=== PATIENT | male | born 1960 | race Caucasian/White ===

== ENCOUNTER 2017-04-08 10:22 | Emergency (ER) | payer OTHER ==
[~2017-04-08] VITALS: Ht 182.8 cm; Wt 86.2 kg
[~2017-04-08 10:22] MED LIST: ALPRAZOLAM2 MG PO; APAP/OXYCODONE1 TA2 PO; ATIVAN1 MG PO; BACTRIM DS 8001 TA1 PO; CYMBALTA30 MG PO; DULOXETINE HCL60 MG PO; EFFEXOR XR75 M1 PO; HYDROCODONE BIT1 T11 PO; KEFLEX500 M1 PO; LEVAQUIN500 M2 PO; METFORMIN500 MG PO; MIRTAZAPINE15 M2 PO; Motrin,Rufen800 MG PO; OLANZAPINE7.5 M1 PO; OXYCODONE AND A1 T12 PO; PERCOCET 325 MG1 TA4 PO; PREDNISONE10 MG PO; PROZAC40 M1 PO; REMERON15 M2 PO; RESTORIL; REXULTI2 MG PO; TIZANIDINE HCL4 MG PO; TRIXAICIN HP0.075% T; VALIUM10 MG PO; VENTOLIN H0.09 MG/AC INH; XANAX1 MG PO; ZOFRAN ODT4 MG SL; ZYPREXA5 M1 PO
[2017-04-08] MEDS ORDERED: PENICILLIN-VK500 MG PO (10:55)
[2017-04-08] MEDS ORDERED: Peridex 473 ML473 ML PO (10:57)
[2017-04-08] MEDS ORDERED: Motrin,Rufen800 MG PO (10:57)
[2017-04-08] MEDS ORDERED: LIDOCAINE VISC100 ML MM (10:57)
== END 2017-04-08 11:24 | disposition home or self-care (01) ==
LOC: ED 10:22
DX: K08.89 Other specified disorders of teeth and supporting structures (principal); F17.200 Nicotine dependence, unspecified, uncomplicated

== ENCOUNTER 2017-07-27 15:26 | Emergency (ER) | payer OTHER ==
[~2017-07-27] VITALS: Ht 182.8 cm; Wt 88.5 kg
[~2017-07-27 15:26] MED LIST changes: +LIDOCAINE VISC100 ML MM; +PENICILLIN-VK500 MG PO; +Peridex 473 ML473 ML PO
[2017-07-27] MEDS ORDERED: SUBOXONE 8 MG-1 EACH SL (15:34)
[2017-07-27] MEDS ORDERED: ZOFRAN4 MG PO (15:45)
[2017-07-27] MEDS ORDERED: VISTARIL25 MG PO (15:45)
== END 2017-07-27 15:51 | disposition home or self-care (01) ==
LOC: ED 15:26
DX: F11.23 Opioid dependence with withdrawal (principal); R03.0 Elevated blood-pressure reading, without diagnosis of hypertension; F17.200 Nicotine dependence, unspecified, uncomplicated; G89.29 Other chronic pain; Z98.890 Other specified postprocedural states

== ENCOUNTER 2018-02-05 19:43 | Emergency (ER) | payer OTHER ==
[~2018-02-05 19:43] MED LIST changes: +SUBOXONE 8 MG-1 EACH SL; +VISTARIL25 MG PO; +ZOFRAN4 MG PO
== END 2018-02-05 21:10 | disposition home or self-care (01) ==
LOC: ED 19:43
DX: M25.561 Pain in right knee (principal); F17.200 Nicotine dependence, unspecified, uncomplicated

== ENCOUNTER 2022-05-12 16:57 | Inpatient (IN) | payer OTHER ==
[~2022-05-12] VITALS: Ht 182.8 cm; Wt 91.3 kg
[~2022-05-12 16:57] MED LIST changes: +DIAZEPAM10 M1 PO; +LEVOFLOXACIN750 M2 PO; +PROAIR HFA8.5 GM INH; +Percocet 325 MG1 TAB PO; +VIBRAMYCIN100 MG PO
[2022-05-12 16:59] VITALS: BP 120/78
[2022-05-12 17:43] LABS: BASO # 0.1 10*3/uL (0.0-0.1); BASO % 0.8 % (0.0-1.0); EOS # 0.5 10*3/uL (0.0-0.4); EOS % 5.1 % (1.0-4.0); HEMATOCRIT 41.3 % (42.0-52.0); LYMPH # 3.5 10*3/uL (1.3-4.4); LYMPH % 34.7 % (27.0-41.0); MEAN CELL VOLUME 87.1 fl (80.0-94.0); MEAN CORPUSCULAR HGB 29.7 pg (27.0-31.0); MEAN CORPUSCULAR HGB CONC 34.1 g/dl (33.0-37.0); MEAN PLATELET VOLUME 9.7 fl (9.6-12.3); MONO # 0.5 10*3/uL (0.1-1.0); MONO % 4.5 % (3.0-9.0); NEUT # 5.4 10*3/uL (2.3-7.9); NEUT % 54.5 % (47.0-73.0); PLATELET COUNT AUTOMATED 225 10*3/uL (130-400); RED BLOOD COUNT 4.74 10*6/uL (4.50-5.90); RED CELL DISTRI WIDTH 13.4 % (0-14.5)
[2022-05-12 17:54] LABS: ACT PARTIAL THROMBO TIME 24.8 SECONDS (20.0-32.1)
[2022-05-12 17:59] LABS: ALKALINE PHOSPHATASE 94 U/L (45-117); BUN 12 mg/dl (7-24); CHLORIDE 108 mmol/L (98-107); CREATININE 1.07 mg/dL (0.70-1.30); POTASSIUM 3.9 mmol/L (3.5-5.1); SGOT/AST 13 IU/L (3-35); SGPT/ALT 19 U/L (12-78); SODIUM 138 mmol/L (136-145); TOTAL PROTEIN 6.3 gm/dL (6.4-8.2)
[2022-05-12 18:13] LABS: BILIRUBIN Negative (Negative); BLOOD Negative (Negative); CLARITY Clear (Clear); COLOR Yellow (Yellow); GLUCOSE Negative (Negative); KETONE Negative (Negative); LEUKO ESTERASE Negative (Negative); NITRITE Negative (Negative); PH 5.5 (4.5-8.0); SPECIFIC GRAVITY <= 1.005 (1.001-1.030); UROBILINOGEN 0.2 E.U./dl (0.0-1.0)
[2022-05-12 18:21] LABS: URINE AMPHETAMINES < 1000 (1000ng/ml); URINE BARBITURATES < 200 (200ng/ml); URINE BENZODIAZEPINES > 200 (200ng/ml); URINE CANNABINOIDS (THC) < 50 (50ng/ml); URINE COCAINE < 300 (300ng/ml); URINE METHADONE < 300 (300ng/ml); URINE OPIATES < 300 (300ng/ml)
[2022-05-12 18:22] LABS: URINE PHENCYCLIDINE < 25 (25ng/ml)
[2022-05-12 18:30] VITALS: BP 116/69
[2022-05-12 18:32] LABS: EPITHELIAL CELLS 0-2; WBC 0-2 wbc/hpf (0-5)
[2022-05-12 21:01] VITALS: BP 118/72
[2022-05-12 21:45] VITALS: BP 128/72
[2022-05-13] VITALS: BP 117/75
[2022-05-13 06:19] LABS: BASO # 0.1 10*3/uL (0.0-0.1); BASO % 1.3 % (0.0-1.0); EOS # 0.6 10*3/uL (0.0-0.4); EOS % 7.7 % (1.0-4.0); HEMATOCRIT 42.9 % (42.0-52.0); LYMPH # 3.3 10*3/uL (1.3-4.4); LYMPH % 42.9 % (27.0-41.0); MEAN CELL VOLUME 89.7 fl (80.0-94.0); MEAN CORPUSCULAR HGB 29.7 pg (27.0-31.0); MEAN CORPUSCULAR HGB CONC 33.1 g/dl (33.0-37.0); MEAN PLATELET VOLUME 10.2 fl (9.6-12.3); MONO # 0.4 10*3/uL (0.1-1.0); MONO % 5.5 % (3.0-9.0); NEUT # 3.2 10*3/uL (2.3-7.9); NEUT % 42.3 % (47.0-73.0); PLATELET COUNT AUTOMATED 204 10*3/uL (130-400); RED BLOOD COUNT 4.78 10*6/uL (4.50-5.90); RED CELL DISTRI WIDTH 13.6 % (0-14.5); WHITE BLOOD COUNT 7.6 10*3/uL (4.8-10.8)
[2022-05-13 06:21] LABS: ALKALINE PHOSPHATASE 92 U/L (45-117); BUN 15 mg/dl (7-24); CHLORIDE 109 mmol/L (98-107); CREATININE 1.15 mg/dL (0.70-1.30); POTASSIUM 4.5 mmol/L (3.5-5.1); SGOT/AST 10 IU/L (3-35); SGPT/ALT 15 U/L (12-78); SODIUM 141 mmol/L (136-145); TOTAL PROTEIN 6.5 gm/dL (6.4-8.2)
[2022-05-13 08:00] VITALS: BP 128/81
[2022-05-13 12:00] VITALS: BP 110/90
[2022-05-13 16:00] VITALS: BP 107/60
[2022-05-13 20:00] VITALS: BP 121/77
[2022-05-14] VITALS: BP 113/84
[2022-05-14 06:21] LABS: BASO # 0.1 10*3/uL (0.0-0.1); BASO % 1.2 % (0.0-1.0); EOS # 0.7 10*3/uL (0.0-0.4); EOS % 8.4 % (1.0-4.0); HEMATOCRIT 44.9 % (42.0-52.0); LYMPH # 2.9 10*3/uL (1.3-4.4); LYMPH % 33.2 % (27.0-41.0); MEAN CELL VOLUME 89.3 fl (80.0-94.0); MEAN CORPUSCULAR HGB 29.2 pg (27.0-31.0); MEAN CORPUSCULAR HGB CONC 32.7 g/dl (33.0-37.0); MEAN PLATELET VOLUME 9.5 fl (9.6-12.3); MONO # 0.5 10*3/uL (0.1-1.0); MONO % 5.2 % (3.0-9.0); NEUT # 4.4 10*3/uL (2.3-7.9); NEUT % 51.7 % (47.0-73.0); PLATELET COUNT AUTOMATED 198 10*3/uL (130-400); RED BLOOD COUNT 5.03 10*6/uL (4.50-5.90); RED CELL DISTRI WIDTH 13.9 % (0-14.5); WHITE BLOOD COUNT 8.6 10*3/uL (4.8-10.8)
[2022-05-14 06:38] LABS: BUN 15 mg/dl (7-24); CHLORIDE 108 mmol/L (98-107); POTASSIUM 4.2 mmol/L (3.5-5.1); SODIUM 140 mmol/L (136-145)
[2022-05-14 06:39] LABS: CREATININE 1.22 mg/dL (0.70-1.30)
[2022-05-14 07:59] VITALS: BP 146/94
[2022-05-14 12:00] VITALS: BP 152/86
[2022-05-14 16:00] VITALS: BP 142/76
[2022-05-14 20:00] VITALS: BP 115/74
[2022-05-15] VITALS: BP 128/81
[2022-05-15 06:12] LABS: BUN 14 mg/dl (7-24); CHLORIDE 108 mmol/L (98-107); CREATININE 1.18 mg/dL (0.70-1.30); POTASSIUM 4.1 mmol/L (3.5-5.1); SODIUM 142 mmol/L (136-145)
[2022-05-15 06:22] LABS: BASO # 0.1 10*3/uL (0.0-0.1); BASO % 1.1 % (0.0-1.0); EOS # 0.7 10*3/uL (0.0-0.4); EOS % 7.8 % (1.0-4.0); HEMATOCRIT 45.7 % (42.0-52.0); LYMPH % 36.3 % (27.0-41.0); MEAN CELL VOLUME 89.8 fl (80.0-94.0); MEAN CORPUSCULAR HGB 29.5 pg (27.0-31.0); MEAN CORPUSCULAR HGB CONC 32.8 g/dl (33.0-37.0); MEAN PLATELET VOLUME 9.8 fl (9.6-12.3); MONO # 0.5 10*3/uL (0.1-1.0); MONO % 5.5 % (3.0-9.0); NEUT % 48.7 % (47.0-73.0); PLATELET COUNT AUTOMATED 188 10*3/uL (130-400); RED BLOOD COUNT 5.09 10*6/uL (4.50-5.90); RED CELL DISTRI WIDTH 13.3 % (0-14.5); WHITE BLOOD COUNT 8.3 10*3/uL (4.8-10.8)
[2022-05-15 08:00] VITALS: BP 130/94
[2022-05-15] MEDS ORDERED: CIPROFLOXACIN H10 ML OT (10:44)
== END 2022-05-15 12:56 | disposition home health service (06) | DRG 351 ==
LOC: ED 16:57 → 4E 18:07 → EDHOLD 18:07 → 4E 20:34
PROVIDERS: Emergency Medicine; Internal Medicine; ADMIT Internal Medicine; ATTEND Internal Medicine
DX: M16.11 Unilateral primary osteoarthritis, right hip (principal); R26.2 Difficulty in walking, not elsewhere classified; G89.29 Other chronic pain; F10.10 Alcohol abuse, uncomplicated; F33.9 Major depressive disorder, recurrent, unspecified; Y09 Assault by unspecified means; F41.9 Anxiety disorder, unspecified; J44.9 Chronic obstructive pulmonary disease, unspecified; M96.1 Postlaminectomy syndrome, not elsewhere classified; E44.0 Moderate protein-calorie malnutrition; Z20.822 Contact with and (suspected) exposure to COVID-19; Z72.0 Tobacco use

== ENCOUNTER 2022-10-02 17:46 | Inpatient (IN) | payer OTHER ==
[~2022-10-02] VITALS: Ht 182.9 cm; Wt 88.5 kg
[~2022-10-02 17:46] MED LIST changes: +CIPROFLOXACIN H10 ML OT
[2022-10-02 17:51] VITALS: BP 125/88
[2022-10-02] MEDS ORDERED: NEURONTIN300 MG PO ×2 (18:00→20:49)
[2022-10-02 19:35] LABS: BASO # 0.1 10*3/uL (0.0-0.1); BASO % 0.9 % (0.0-1.0); EOS # 0.7 10*3/uL (0.0-0.4); EOS % 7.2 % (1.0-4.0); HEMATOCRIT 43.9 % (42.0-52.0); LYMPH # 2.7 10*3/uL (1.3-4.4); LYMPH % 30.2 % (27.0-41.0); MEAN CELL VOLUME 85.6 fl (80.0-94.0); MEAN CORPUSCULAR HGB 28.3 pg (27.0-31.0); MEAN PLATELET VOLUME 9.5 fl (9.6-12.3); MONO # 0.6 10*3/uL (0.1-1.0); MONO % 6.6 % (3.0-9.0); PLATELET COUNT AUTOMATED 219 10*3/uL (130-400); RED BLOOD COUNT 5.13 10*6/uL (4.50-5.90); RED CELL DISTRI WIDTH 13.7 % (0-14.5)
[2022-10-02 19:54] LABS: CHLORIDE 108 mmol/L (98-107); CREATININE 1.12 mg/dL (0.70-1.30); POTASSIUM 4.1 mmol/L (3.5-5.1); SODIUM 139 mmol/L (136-145)
[2022-10-02 20:05] LABS: ALKALINE PHOSPHATASE 118 U/L (45-117); BUN 14 mg/dl (7-24); SGPT/ALT 28 U/L (12-78)
[2022-10-02] MEDS ORDERED: VALIUM10 MG PO (20:48)
[2022-10-02] MEDS ORDERED: DULOXETINE HCL60 MG PO (20:49)
[2022-10-02] MEDS ORDERED: OMEPRAZOLE40 MG PO (20:50)
[2022-10-02 20:52] VITALS: BP 130/82
[2022-10-02 23:31] VITALS: BP 110/73
[2022-10-02 23:45] VITALS: BP 110/85
[2022-10-03 00:13] VITALS: BP 110/85
[2022-10-03 06:39] LABS: ACT PARTIAL THROMBO TIME 26.2 SECONDS (20.0-32.1)
[2022-10-03 06:44] LABS: ALKALINE PHOSPHATASE 100 U/L (45-117); BASO # 0.1 10*3/uL (0.0-0.1); BASO % 0.7 % (0.0-1.0); BUN 14 mg/dl (7-24); CHLORIDE 106 mmol/L (98-107); EOS # 0.7 10*3/uL (0.0-0.4); EOS % 9.3 % (1.0-4.0); HEMATOCRIT 44.2 % (42.0-52.0); LYMPH # 2.7 10*3/uL (1.3-4.4); LYMPH % 37.8 % (27.0-41.0); MEAN CELL VOLUME 86.5 fl (80.0-94.0); MEAN CORPUSCULAR HGB 28.8 pg (27.0-31.0); MEAN CORPUSCULAR HGB CONC 33.3 g/dl (33.0-37.0); MEAN PLATELET VOLUME 9.6 fl (9.6-12.3); MONO # 0.4 10*3/uL (0.1-1.0); MONO % 5.4 % (3.0-9.0); NEUT # 3.3 10*3/uL (2.3-7.9); NEUT % 46.5 % (47.0-73.0); PLATELET COUNT AUTOMATED 217 10*3/uL (130-400); POTASSIUM 3.8 mmol/L (3.5-5.1); RED BLOOD COUNT 5.11 10*6/uL (4.50-5.90); RED CELL DISTRI WIDTH 13.7 % (0-14.5); SGPT/ALT 26 U/L (12-78); SODIUM 137 mmol/L (136-145); TOTAL PROTEIN 6.6 gm/dL (6.4-8.2)
[2022-10-03 08:46] VITALS: BP 124/86
[2022-10-03 12:25] VITALS: BP 119/76
[2022-10-03 16:00] VITALS: BP 105/76
[2022-10-03 20:00] VITALS: BP 110/75
[2022-10-04] VITALS: BP 111/79
[2022-10-04 08:00] VITALS: BP 113/90
[2022-10-04 12:00] VITALS: BP 117/82
[2022-10-04] MEDS ORDERED: NEURONTIN300 MG PO (15:58)
[2022-10-04] MEDS ORDERED: VALIUM10 MG PO (15:58)
[2022-10-04 16:00] VITALS: BP 103/54
== END 2022-10-04 18:25 | DRG 351 ==
LOC: ED 17:46 → EDHOLD 20:27 → 4E 20:27
PROVIDERS: Internal Medicine; Physician Assistant; ADMIT Internal Medicine; ATTEND Internal Medicine
DX: M25.552 Pain in left hip (principal); M48.061 Spinal stenosis, lumbar region without neurogenic claudication; R26.2 Difficulty in walking, not elsewhere classified; G89.29 Other chronic pain; E44.0 Moderate protein-calorie malnutrition; F41.9 Anxiety disorder, unspecified; J44.9 Chronic obstructive pulmonary disease, unspecified; M16.11 Unilateral primary osteoarthritis, right hip; F10.10 Alcohol abuse, uncomplicated; Z20.822 Contact with and (suspected) exposure to COVID-19; F32.9 Major depressive disorder, single episode, unspecified; Z78.9 Other specified health status; Z71.6 Tobacco abuse counseling; Z68.26 Body mass index [BMI] 26.0-26.9, adult

== ENCOUNTER 2023-04-25 20:45 | Emergency (ER) | payer OTHER ==
[~2023-04-25] VITALS: Ht 167.6 cm; Wt 74.8 kg
[~2023-04-25 20:45] MED LIST changes: +NEURONTIN300 MG PO; +OMEPRAZOLE40 MG PO
[2023-04-25 21:43] LABS: BASO % 0.5 % (0.0-1.0); EOS # 0.4 10*3/uL (0.0-0.4); EOS % 4.1 % (1.0-4.0); HEMATOCRIT 43.6 % (42.0-52.0); LYMPH # 2.4 10*3/uL (1.3-4.4); MEAN CELL VOLUME 83.4 fl (80.0-94.0); MEAN CORPUSCULAR HGB 28.3 pg (27.0-31.0); MEAN CORPUSCULAR HGB CONC 33.9 g/dl (33.0-37.0); MEAN PLATELET VOLUME 8.8 fl (9.6-12.3); MONO # 0.4 10*3/uL (0.1-1.0); MONO % 4.1 % (3.0-9.0); NEUT # 5.4 10*3/uL (2.3-7.9); PLATELET COUNT AUTOMATED 208 10*3/uL (130-400); RED BLOOD COUNT 5.23 10*6/uL (4.50-5.90); RED CELL DISTRI WIDTH 14.3 % (0-14.5); WHITE BLOOD COUNT 8.6 10*3/uL (4.8-10.8)
[2023-04-25 22:07] LABS: ALKALINE PHOSPHATASE 105 U/L (46-116); BUN 7 mg/dl (9-23); CHLORIDE 102 mmol/L (98-107); CPK 106 U/L (34-171); ETHYL ALCOHOL 20.9 mg/dl (<3); POTASSIUM 3.6 mmol/L (3.4-5.1); SGPT/ALT 15 U/L (10-49); THYROID STIM HORMONE (HS) 0.377 uIU/ml (0.550-4.780)
[2023-04-26 00:25] LABS: BILIRUBIN Negative (Negative); BLOOD Negative (Negative); CLARITY Clear (Clear); COLOR Yellow (Yellow); GLUCOSE 2+ (Negative); KETONE Negative (Negative); LEUKO ESTERASE Negative (Negative); NITRITE Negative (Negative); PH 5.5 (4.5-8.0); SPECIFIC GRAVITY <= 1.005 (1.001-1.030); URINE AMPHETAMINES Negative (1000ng/ml); URINE BARBITURATES Negative (200ng/ml); URINE BENZODIAZEPINES Positive (200ng/ml); URINE CANNABINOIDS (THC) Negative (50ng/ml); URINE COCAINE Negative (300ng/ml); URINE METHADONE Negative (300ng/ml); URINE OPIATES Positive (300ng/ml); URINE PHENCYCLIDINE Negative (25ng/ml); UROBILINOGEN 0.2 E.U./dl (0.0-1.0)
[2023-04-26 00:55] LABS: MUCOUS 1+
== END 2023-04-26 09:55 | disposition home or self-care (01) ==
LOC: ED 20:45
PROVIDERS: Emergency Medicine
DX: F43.20 Adjustment disorder, unspecified (principal); F10.129 Alcohol abuse with intoxication, unspecified; J44.9 Chronic obstructive pulmonary disease, unspecified; F32.9 Major depressive disorder, single episode, unspecified; E11.40 Type 2 diabetes mellitus with diabetic neuropathy, unspecified; F41.9 Anxiety disorder, unspecified; F17.200 Nicotine dependence, unspecified, uncomplicated; Z98.890 Other specified postprocedural states; Z20.822 Contact with and (suspected) exposure to COVID-19; Y90.1 Blood alcohol level of 20-39 mg/100 ml

== ENCOUNTER 2025-01-01 16:19 | Emergency (ER) | payer OTHER ==
[~2025-01-01] VITALS: Ht 182.8 cm; Wt 89.4 kg
[~2025-01-01 16:19] MED LIST changes: +CELECOXIB200 M1 PO; +GABAPENTIN400 MG PO; +TRAZODONE50 MG PO
[2025-01-01] MEDS ORDERED: HYDROCODONE-AC1 EAC1 PO (16:36)
[2025-01-01] MEDS ORDERED: methylPREDNISolone sod succ 125 MG VIAL IM ONE (17:35)
[2025-01-01 17:41] LABS: BASO % 0.6 % (0.0-1.0); HEMATOCRIT 45.1 % (42.0-52.0); MEAN CELL VOLUME 88.8 fl (80.0-94.0); MEAN CORPUSCULAR HGB 29.5 pg (27.0-31.0); MEAN CORPUSCULAR HGB CONC 33.3 g/dl (33.0-37.0); MEAN PLATELET VOLUME 9.3 fl (9.6-12.3); MONO # 0.5 10*3/uL (0.1-1.0); MONO % 7.8 % (3.0-9.0); NEUT # 5.5 10*3/uL (2.3-7.9); NEUT % 80.8 % (47.0-73.0); PLATELET COUNT AUTOMATED 168 10*3/uL (130-400); RED BLOOD COUNT 5.08 10*6/uL (4.50-5.90); RED CELL DISTRI WIDTH 13.2 % (0-14.5); WHITE BLOOD COUNT 6.8 10*3/uL (4.8-10.8)
[2025-01-01] MEDS ORDERED: predniSONE 20 MG TAB PO ONE (17:45)
[2025-01-01 17:58] LABS: BUN 12 mg/dl (9-23); CHLORIDE 101 mmol/L (98-107); POTASSIUM 3.6 mmol/L (3.4-5.1)
== END 2025-01-01 20:00 | disposition home or self-care (01) ==
LOC: ED 16:19
PROVIDERS: Physician Assistant Medical
DX: J10.1 Influenza due to other identified influenza virus with other respiratory manifestations (principal); Z20.822 Contact with and (suspected) exposure to COVID-19; R42 Dizziness and giddiness; J44.9 Chronic obstructive pulmonary disease, unspecified; F32.A Depression, unspecified; F41.9 Anxiety disorder, unspecified; E11.9 Type 2 diabetes mellitus without complications; F17.200 Nicotine dependence, unspecified, uncomplicated; Z79.899 Other long term (current) drug therapy; Z98.890 Other specified postprocedural states

== ENCOUNTER 2025-01-09 10:12 | Emergency (ER) | payer OTHER ==
[~2025-01-09] VITALS: Ht 182.8 cm; Wt 89.4 kg
[~2025-01-09 10:12] MED LIST changes: +HYDROCODONE-AC1 EAC1 PO
[2025-01-09 11:21] LABS: BASO % 0.3 % (0.0-1.0); EOS # 0.2 10*3/uL (0.0-0.4); EOS % 1.3 % (1.0-4.0); HEMATOCRIT 42.9 % (42.0-52.0); MEAN CELL VOLUME 86.7 fl (80.0-94.0); MEAN CORPUSCULAR HGB 29.1 pg (27.0-31.0); MEAN CORPUSCULAR HGB CONC 33.6 g/dl (33.0-37.0); MEAN PLATELET VOLUME 8.8 fl (9.6-12.3); MONO # 0.8 10*3/uL (0.1-1.0); MONO % 6.5 % (3.0-9.0); NEUT # 8.6 10*3/uL (2.3-7.9); NEUT % 72.7 % (47.0-73.0); PLATELET COUNT AUTOMATED 306 10*3/uL (130-400); RED BLOOD COUNT 4.95 10*6/uL (4.50-5.90); RED CELL DISTRI WIDTH 12.8 % (0-14.5); WHITE BLOOD COUNT 11.8 10*3/uL (4.8-10.8)
[2025-01-09] MEDS ORDERED: AZITHROMYCIN 250 MG TAB PO ONE (11:35)
[2025-01-09] MEDS ORDERED: predniSONE 20 MG TAB PO ONE (11:35)
[2025-01-09 11:43] LABS: ALKALINE PHOSPHATASE 98 U/L (46-116); BUN 11 mg/dl (9-23); CHLORIDE 101 mmol/L (98-107); POTASSIUM 4.1 mmol/L (3.4-5.1); SGPT/ALT 18 U/L (5-49); TOTAL PROTEIN 7.5 gm/dL (6.0-8.0)
[2025-01-09] MEDS ORDERED: PREDNISONE50 MG PO (12:16)
[2025-01-09] MEDS ORDERED: AVPAK AZITHROM250 M1 PO (12:16)
== END 2025-01-09 12:20 | disposition home or self-care (01) ==
LOC: ED 10:12
PROVIDERS: Internal Medicine
DX: J40 Bronchitis, not specified as acute or chronic (principal); F32.A Depression, unspecified; F41.9 Anxiety disorder, unspecified; E11.9 Type 2 diabetes mellitus without complications; F17.200 Nicotine dependence, unspecified, uncomplicated; F15.10 Other stimulant abuse, uncomplicated; Z90.49 Acquired absence of other specified parts of digestive tract; Z98.890 Other specified postprocedural states

== ENCOUNTER 2025-03-01 10:41 | Emergency (ER) | payer OTHER ==
[~2025-03-01] VITALS: Ht 182.8 cm; Wt 86.6 kg
[~2025-03-01 10:41] MED LIST changes: +AVPAK AZITHROM250 M1 PO; +PREDNISONE50 MG PO
== END 2025-03-01 11:59 | disposition home or self-care (01) ==
LOC: ED 10:41
DX: F13.239 Sedative, hypnotic or anxiolytic dependence with withdrawal, unspecified (principal); F11.23 Opioid dependence with withdrawal; R00.2 Palpitations; R53.83 Other fatigue; R53.81 Other malaise; R42 Dizziness and giddiness; F41.9 Anxiety disorder, unspecified; F17.200 Nicotine dependence, unspecified, uncomplicated; Z79.899 Other long term (current) drug therapy; Z98.890 Other specified postprocedural states

== ENCOUNTER 2025-05-14 13:50 | Emergency (ER) | payer OTHER ==
[~2025-05-14] VITALS: Ht 182.8 cm; Wt 88.9 kg
[2025-05-14] MEDS ORDERED: QUETIAPINE FUMA50 M1 PO (14:28)
[2025-05-14] MEDS ORDERED: DIAZEPAM2 MG PO (14:29)
[2025-05-14] MEDS ORDERED: PREDNISONE20 M1 PO (15:20)
[2025-05-14] MEDS ORDERED: methylPREDNISolone sod succ 125 MG VIAL IM ONE (15:30)
[2025-05-14] MEDS ORDERED: Ketorolac Tromethamine 60 MG/2 ML VIAL IM ONE (15:30)
== END 2025-05-14 15:50 | disposition home or self-care (01) ==
LOC: ED 13:50
DX: G89.29 Other chronic pain (principal); M54.50 Low back pain, unspecified; E11.9 Type 2 diabetes mellitus without complications; F32.A Depression, unspecified; F41.9 Anxiety disorder, unspecified; J44.9 Chronic obstructive pulmonary disease, unspecified; Z79.899 Other long term (current) drug therapy; Z98.890 Other specified postprocedural states

== ENCOUNTER → 2025-09-20 | Outpatient (CLI) | payer OTHER ==
[~2025-09-20] MED LIST changes: +DIAZEPAM2 MG PO; +PREDNISONE20 M1 PO; +QUETIAPINE FUMA50 M1 PO
== END | disposition home or self-care (01) ==
LOC: RAD 08:17
PROVIDERS: ATTEND Nurse Practitioner Family
DX: J44.9 Chronic obstructive pulmonary disease, unspecified (principal); E87.1 Hypo-osmolality and hyponatremia; E78.2 Mixed hyperlipidemia; K21.9 Gastro-esophageal reflux disease without esophagitis; E11.9 Type 2 diabetes mellitus without complications

== ENCOUNTER 2025-10-06 09:42 | Emergency (ER) | payer OTHER ==
[~2025-10-06] VITALS: Ht 170.2 cm; Wt 90.7 kg
[2025-10-06] MEDS ORDERED: Metoclopramide Hydrochloride 10 MG/2 ML VIAL IV ONE (10:00)
[2025-10-06] MEDS ORDERED: diphenhydrAMINE hydrochloride 50 MG/ML VIAL IV ONE (10:00)
[2025-10-06] MEDS ORDERED: Ondansetron Hydrochloride 4 MG/2 ML VIAL IV ONE (10:00)
[2025-10-06 10:32] LABS: BASO # 0.1 10*3/uL (0.0-0.1); BASO % 0.9 % (0.0-1.0); EOS # 0.5 10*3/uL (0.0-0.4); EOS % 5.3 % (1.0-4.0); MEAN CELL VOLUME 88.1 fl (80.0-94.0); MEAN CORPUSCULAR HGB 30.1 pg (27.0-31.0); MEAN PLATELET VOLUME 9.4 fl (9.6-12.3); MONO # 0.6 10*3/uL (0.1-1.0); MONO % 5.6 % (3.0-9.0); NEUT # 5.5 10*3/uL (2.3-7.9); NEUT % 53.9 % (47.0-73.0); NUCLEATED RED BLOOD CELL 0.0 % (0.0-0.0); NUCLEATED RED BLOOD CELL 0.0 10*3/uL (0.0-0.0); PLATELET COUNT AUTOMATED 260 10*3/uL (130-400); RED CELL DISTRI WIDTH 13.1 % (0-14.5)
[2025-10-06 10:54] LABS: BUN 12 mg/dl (9-23); CPK 152 U/L (34-171); SGPT/ALT 16 U/L (5-49)
[2025-10-06] MEDS ORDERED: REGLAN10 M1 PO (11:36)
[2025-10-06] MEDS ORDERED: Ondansetron4 MG PO (11:36)
== END 2025-10-06 11:35 | disposition home or self-care (01) ==
LOC: ED 09:42
PROVIDERS: Emergency Medicine
DX: R10.13 Epigastric pain (principal); R07.89 Other chest pain; R06.4 Hyperventilation; R10.10 Upper abdominal pain, unspecified; R05.9 Cough, unspecified; F17.200 Nicotine dependence, unspecified, uncomplicated; Z79.899 Other long term (current) drug therapy